=== PATIENT | male | born 1970 | race Caucasian/White ===

== ENCOUNTER 2024-04-14 15:44 | Emergency (ER) | payer BC ==
[~2024-04-14] VITALS: Ht 182.9 cm; Wt 88.5 kg
[2024-04-14 15:50] VITALS: BP_SYST 151; PULSE 80; RESP 18; TEMP 98.8; O2SAT 97
[2024-04-14] MEDS ORDERED: METH-776 PO (16:50)
[2024-04-14 17:00] VITALS: BP_SYST 151; PULSE 80; RESP 18; TEMP 98.8; O2SAT 97
== END 2024-04-14 17:00 | disposition home or self-care (01) ==
LOC: SED 15:44
DX: M10.9 Gout, unspecified (principal); Z79.899 Other long term (current) drug therapy
CPT/HCPCS: 36415; 84550; 99283